=== PATIENT | female | born 1985 | race Caucasian/White ===

== ENCOUNTER → 2016-04-14 | Outpatient (CLI) | payer OTHER ==
[~2016-04-14] MED LIST: BCPILLS PO; BSP/10 PO; HYDR-5688 PO; PENI500T2 PO; VENL150C PO; VENL75CA PO
--- NOTE | 2016-04-14 17:50 | DIAGNOSTIC IMAGING REPORT ---
APPENDIX ULTRASOUND HISTORY: Right lower quadrant abdominal pain. COMPARISON: Abdomen and pelvis CT 05/20/2014. FINDINGS: Transabdominal scanning of the right lower quadrant was performed. The appendix was not identified. There are no fluid collections or masses within the right lower quadrant. IMPRESSION: The appendix was not identified. Electronically signed by: Hi Lieberman M.D. 04/14/2016 5:49 PM Dictated Date/Time: 04/14/2016 5:48 PM
--- NOTE | 2016-04-14 17:53 | DIAGNOSTIC IMAGING REPORT ---
PELVIC ULTRASOUND, TRANSABDOMINAL AND TRANSVAGINAL HISTORY: Right-sided pelvic pain. COMPARISON: Pelvic ultrasound 02/17/2015. FINDINGS: Uterus: 11.0 x 5.5 x 6.5 cm. No uterine masses. Trace fluid within the cervical canal. Evidence for prior scar within the anterior lower uterine segment. Endometrial stripe: 1.2 cm in thickness. Right ovary: Normal in size and demonstrates normal color flow. A few small follicles/cysts. This is only seen transabdominally. Left ovary: Normal in size and demonstrates normal color flow. A few small follicles/cysts. Miscellaneous:No pelvic free fluid. IMPRESSION: No significant abnormality identified within the pelvis. Electronically signed by: Hi Lieberman M.D. 04/14/2016 5:51 PM Dictated Date/Time: 04/14/2016 5:49 PM
== END | disposition home or self-care (01) ==
LOC: C.ULTR 17:45
PROVIDERS: ATTEND Family Medicine
DX: R10.31 Right lower quadrant pain (principal)

== ENCOUNTER 2016-10-04 17:45 | Emergency (ER) | payer OTHER ==
[~2016-10-04] VITALS: Ht 152.4 cm; Wt 93.0 kg
[2016-10-04 17:49] VITALS: TEMP 36.6; Ht 152.4 cm; Wt 93.0 kg
[2016-10-04] MEDS ORDERED: VENL150C PO (17:59)
[2016-10-04] MEDS ORDERED: BCPILLS PO (17:59)
[2016-10-04] MEDS ORDERED: BSP/10 PO (17:59)
[2016-10-04] MEDS ORDERED: VENL75CA PO (17:59)
[2016-10-04] MEDS ORDERED: PENI500T2 PO (18:10)
[2016-10-04] MEDS ORDERED: HYDR-5688 PO (18:10)
[2016-10-04] MEDS ORDERED: NORCO 5/325MG HOME PACK PO ONE (18:15)
[2016-10-04] MEDS ORDERED: PENICILLIN HOME PACK 500MG (4 DOSES)BTL PO ONE (18:15)
[2016-10-04 18:35] VITALS: BP 132/78; PULSE 77; O2SAT 98
--- NOTE | 2016-10-07 15:08 | EMERGENCY ROOM VISIT NOTE ---
ED Visit Note First contact with patient: 17:54 CHIEF COMPLAINT: Tooth pain. HISTORY OF PRESENT ILLNESS: Ms. Sinclair is a 31-year-old white female who ambulates into the ED complaining of left mandibular dental pain. She reports a progressive dental pain for last 3 weeks over the left mandible. The pain is now steady and severe and radiates to the jaw and ear. She has been using over the counter but has had moderate relief of her discomfort but last 2 days the pain became severe. Currently she is complaining of a deep achy and throbbing pain over the left mandible in the area of tooth 19 and 20. She rates her discomfort 6/10. Her.is pain does radiate into the body of the mandible and into the ear. Her discomfort worsens with chewing food and exposure to cold foods. She has not identified any alleviating factors over the last 2 days. Associated with her pain she reports she feels a fullness around the tooth and she has had mild fevers of 100F and chills. She denies any associated symptoms including headaches, dizziness, lightheadedness, skin eruptions, skin color changes, facial swelling, sore throat, difficulty swallowing, painful talking, voice changes, drooling, hearing changes, ear drainage, decreased appetite, nausea/ vomiting. REVIEW OF SYSTEMS: As noted above in History of Present Illness. 8 body systems were reviewed with this patient and found to be negative unless noted above otherwise. PMH: Status post section 3.. CURRENT MEDICATION: Effexor, control, buspirone. ALLERGIES TO MEDICATION: Wellbutrin, IV contrast dye. SOCIAL HISTORY: Patient is not employed; she feels safe in her home environment ; she denies tobacco and alcohol use. PHYSICAL EXAM: Vital Signs: Date Time Temp Pulse Resp B/P (MAP) Pulse Ox O2 Delivery O2 Flow Rate FiO2 10/04/16 18:35 77 18 132/78 98 10/04/16 17:49 36.6 74 18 124/73 97 Room Air General: 31 year-old white female in mild distress due to pain, nontoxic appearing, afebrile and hemodynamically stable. Neurological: Awake, alert and oriented to person, place and time. Answering questions appropriately and following commands. Normal gait. Good hand eye coordination. No focal motor or sensory deficits. Skin: Warm, dry and pink. No soft tissue lesions, rashes, or trauma noted. HEENT: Atraumatic and normocephalic. Oral cavity is moist and pink. Airway is patent. Uvula is midline and no abscesses are seen. Speech is normal. No drooling. No intraoral trauma is noted. There is obvious signs of dental decay over tooth #20 below the crown. The gingiva is mildly erythematous and mildly edematous. I was not able to palpate any abscesses. There was no swelling or masses under the tongue. No cervical or submandibular lymphadenopathy. External ears are nontender. Auditory canals are pink and patent. Tympanic membranes are normal appearing within normal light reflex and no bulging or erythema. ED COURSE: Patient is assessed as noted above. Patient is educated about her findings and instructed on her treatment plan; she verbalizes understanding and agreement with this plan. CLINIC IMPRESSION: Dental pain. Possible early abscess. DISPOSITION: Patient discharged home in stable condition; prior to departure she was reassessed and subjectively reported she was feeling the same. PLAN: Patient was prescribed Pen-Vee K 500 mg 4 times a day for 10 days. Patient was placed on a sliding pain scale of ibuprofen, acetaminophen and [place] ; she was given appropriate precautions for use of narcotics. Her name was checked on the state database and no red flags were noted. Patient was encouraged to use a mechanical soft diet and possibly cover the teeth with dental wax. Patient was encouraged to keep her upcoming appointment with dentistry for definitive care and treatment. Patient was encouraged return the ED for worsening/uncontrolled pain, facial swelling, worsening fevers or any new/concerning symptoms.
== END 2016-10-04 18:31 | disposition home or self-care (01) ==
LOC: C.EDB 17:46 → C.EDD 18:31
DX: K08.89 Other specified disorders of teeth and supporting structures (principal); Z98.891 History of uterine scar from previous surgery